=== PATIENT | female | born 1995 | race African-American/Black ===

== ENCOUNTER 2016-06-16 16:26 | Emergency (ER) | payer OTHER ==
[2016-06-16 16:30] VITALS: BP 121/70; PULSE 80; BMI 21.9
[2016-06-16] MEDS ORDERED: SODIUM CHLORIDE 1,000 ML IV STA (17:18)
[2016-06-16 17:20] VITALS: TEMP 97.8
[2016-06-16 17:40] LABS: BASOPHIL 0.3 % (0-2.0); EOSINOPHIL 0.7 % (0-4.5); MCH 28.7 pg (25.7-33.7); MCHC 33.5 g/dl (32.0-36.0); MEAN CELL VOLUME 85.8 fl (80-96); MEAN PLT VOLUME 7.2 fl (7.5-11.1); NEUTROPHILS 74.7 % (42.8-82.8); PLATELET COUNT 321 K/MM3 (134-434); RDW 16.3 % (11.6-15.6)
--- NOTE | 2016-06-16 17:44 | PDOC ---
History of Present Illness - General Chief Complaint: Pain, Acute Stated Complaint: DIFFICULTY BREATHING Time Seen by Provider: 06/16/16 17:01 History Source: Patient Exam Limitations: No Limitations - History of Present Illness Travel History: No Initial Comments: 06/16/16 17:41 20 yr female with painful menstrual cramps started yesterday. Mother states this happens monthly. Pt has never seen [employer] . Pt states LMP 06/15/16. Pt denies any medical history or surgeries or allergies. non smoker, denies drugs or alcohol. Pt appears to drift off during conversation. Timing/Duration: reports: constant Quality: reports: mild Abdominal Pain Onset Location: reports: suprapubic Pain Radiation: reports: no radiation Past History - Past Medical History Allergies/Adverse Reactions: Allergies Allergy/AdvReac Type Severity Reaction Status Date / Time No Known Allergies Allergy Verified 06/16/16 16:33 Home Medications: Ambulatory Orders Ibuprofen 800 mg PO TID PRN #30 tablet 06/16/16 Other medical history: dysmennorhea - Psycho/Social/Smoking Cessation Hx Suicidal Ideation: No Smoking History: Never smoked Information on smoking cessation initiated: No Abd/GI Specific PMHX - Complaint Specific PMHX Colitis: No Diverticulitis: No Gall Bladder Disease: No GERD: No Hepatitis: No Irritable Bowel Synd (IBS): No Pancreatitis: No GI Ulcer Disease: No Review of Systems - Review of Systems Able to Perform ROS?: Yes Is the patient limited Malay proficient: No Constitutional: No: Symptoms Reported HEENTM: No: Symptoms Reported Respiratory: No: Symptoms reported Cardiac (ROS): No: Symptoms Reported ABD/GI: Yes: See HPI : No: Symptoms Reported Musculoskeletal: No: Symptoms Reported Integumentary: No: Symptoms Reported Neurological: No: Symptoms reported *Physical Exam - Vital Signs Last Vital Signs Temp Pulse Resp BP Pulse Ox 97.8 F 80 18 121/70 96 06/16/16 17:20 06/16/16 16:27 06/16/16 16:27 06/16/16 16:27 06/16/16 16:27 - Physical Exam General Appearance: Yes: Nourished, Appropriately Dressed, Other (sleepy ) HEENT: positive: EOMI, AMANDA, Normal ENT Inspection, TMs Normal, Pharynx Normal Neck: negative: Tender Respiratory/Chest: positive: Lungs Clear, Normal Breath Sounds. negative: Chest Tender Cardiovascular: positive: Regular Rhythm, Regular Rate Gastrointestinal/Abdominal: positive: Normal Bowel Sounds, Soft, Tenderness ( suprapubic). negative: Guarding, Rebound Musculoskeletal: positive: Normal Inspection Extremity: positive: Normal Capillary Refill, Normal Inspection, Normal Range of Motion Integumentary: positive: Normal Color, Dry, Warm Neurologic: positive: Fully Oriented, Alert, Normal Mood/Affect, Normal Response , Motor Strength 5/5, Other (drifts off during conversation) ED Treatment Course - LABORATORY CBC & Chemistry Diagram: 06/16/16 17:33 06/16/16 17:33 Medical Decision Making - Medical Decision Making 06/16/16 17:44 cc: painful menstruation, weakness will check labs, urine tox, r/o ivf 06/16/16 19:08 pt feels much better after meds and fluids. Pt drinking well states her carol has resolved and would like to go home. 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 pt stable on discharge. steady gait. *DC/Admit/Observation/Transfer Diagnosis at time of Disposition: Dysmenorrhea - Discharge Dispostion Disposition: HOME Condition at time of disposition: Good - Prescriptions Prescriptions: Ibuprofen 800 mg PO TID PRN #30 tablet PRN Reason: Pain - Referrals Referrals: Tea Caban MD [Staff Physician] - - Patient Instructions Additional Instructions: follow with at [facility] for follow up drink pleanty of water take ibuprofen every 8hrs for pain as needed return to ER for any worsening symptoms
[2016-06-16] MEDS ORDERED: ACETAMINOPHEN 1000 MG/100 ML VIAL (NON FORMULARY) IVPB ONE (17:49)
[2016-06-16 18:08] LABS: ALBUMIN 3.8 g/dl (3.4-5.0); ALK PHOS 67 U/L (45-117); ANION GAP 11 (8-16); BILIRUBIN,TOTAL 0.2 mg/dL (0.2-1.0); CO2 26 mmol/L (21-32); CREATININE 0.6 mg/dL (0.55-1.02); GLUCOSE,RANDOM 104 mg/dL (74-106); SGPT/ALT 21 U/L (12-78); TOT PROT 8.1 g/dl (6.4-8.2)
[2016-06-16 18:10] LABS: SGOT/AST 22 U/L (15-37)
[2016-06-16] MEDS ORDERED: KETOROLAC TROMETHAMINE 15 MG/ML VIAL IVPUSH ONE (18:27)
[2016-06-16] MEDS ORDERED: KETOROLAC TROMETHAMINE 15 MG/ML VIAL ONE (18:37)
[2016-06-16 18:58] LABS: URINE APPEARANCE CLOUDY; URINE BILIRUBIN NEGATIVE (NEGATIVE); URINE COLOR LTYELLOW; URINE GLUCOSE (UA) NEGATIVE (NEGATIVE); URINE KETONE NEGATIVE (NEGATIVE); URINE LEUK ESTERASE NEGATIVE (NEGATIVE); URINE NITRITE NEGATIVE (NEGATIVE); URINE PROTEIN NEGATIVE (NEGATIVE); URINE UROBILINOGEN NEGATIVE E.U./dl (0.2-1.0)
[2016-06-16 18:59] LABS: URINE BLOOD 3+ (NEGATIVE)
[2016-06-16 19:04] LABS: URINE BACTERIA RARE /hpf (NONE SEEN); URINE RBC 351 /hpf (0-3); URINE WBC 3 /hpf (3-5); YEAST RARE
[2016-06-16 19:07] LABS: URINE MARIJUANA THC NEGATIVE ng/ml (CUTOFF=50)
== END 2016-06-16 19:13 | disposition home or self-care (01) ==
LOC: JER 16:26 → JERFT 16:26
DX: N94.6 Dysmenorrhea, unspecified (principal)
CPT/HCPCS: 36415; 80053; 80307; 81003; 81015; 84703; 85025; 86850; 86900; 86901; 99282-25

== ENCOUNTER 2021-07-30 12:18 | Emergency (ER) | payer OTHER ==
[2021-07-30 12:41] VITALS: BP 125/66; PULSE 63; TEMP 97.8; BMI 23.8
[2021-07-30] MEDS ORDERED: IBUPROFEN 600 MG TABLET (FP) PO ONE (13:05)
[2021-07-30] MEDS ORDERED: IBUPROFEN 400 MG TABLET (FP) PO ONE ×4 (13:06→14:22)
[2021-07-30] MEDS ORDERED: ONDANSETRON *ODT* 4 MG TABLET SL ONE (13:38)
[2021-07-30] MEDS ORDERED: ONDANSETRON *ODT* 4 MG TABLET ONE (14:22)
== END 2021-07-30 16:00 ==
LOC: JER 12:18
DX: N94.6 Dysmenorrhea, unspecified (principal)
CPT/HCPCS: 36415; 84703; 99284-25; Q0162

== ENCOUNTER 2021-11-14 13:09 | Emergency (ER) | payer OTHER ==
[2021-11-14 13:29] VITALS: BP 131/96; PULSE 91; TEMP 98.1; BMI 21.7
== END 2021-11-14 16:50 | disposition home or self-care (01) ==
LOC: JERFT 13:09
DX: S32.059A Unspecified fracture of fifth lumbar vertebra, initial encounter for closed fracture (principal); W07.XXXA Fall from chair, initial encounter
CPT/HCPCS: 72220-TC-FY; 99283-25